=== PATIENT | male | born 1940 | race Caucasian/White ===

== ENCOUNTER 2022-11-29 08:00 | Outpatient (CLI) | payer OTHER ==
--- NOTE | 2022-11-29 19:26 | XRAY Report ---
PROCEDURE: Hand 3 View LT INDICATIONS: LEFT HAND LACERATION TECHNIQUE: 3 views of the hand(s) acquired. COMPARISON: None. FINDINGS: Bones: No fractures or dislocations. No suspicious bony lesions. Age-appropriate degenerative changes are seen. Soft tissues: Soft tissue gas and irregularity can be seen involving the base of the third finger, w hich is consistent with the given history. No radiopaque foreign bodies are seen. IMPRESSION: Third finger laceration, without a radiopaque foreign body. No bony involvement can be seen. Reviewed by: Enrrique Gambino MD on 11/29/2022 6:25 PM [facility] Approved by: Enrrique Gambino MD on 11/29/2022 6:25 PM [facility] Station ID: [id number]
== END 2022-11-29 23:59 | disposition home or self-care (01) ==
LOC: DI.S 08:00
PROVIDERS: ATTEND Emergency Medicine
DX: S61.213A Laceration without foreign body of left middle finger without damage to nail, initial encounter (principal)

== ENCOUNTER 2023-06-29 19:32 | Emergency (ER) | payer OTHER ==
[2023-06-29] MEDS ORDERED: SODIUM CHLORIDE 0.9% 1,000 ML IV STA ×2 (19:51→20:51)
[2023-06-29 20:23] LABS: BASOPHILS % (AUTO) 0.2 %; EOSINOPHILS # (AUTO) 0.2 10^3/uL (0.0-0.7); HCT - HEMATOCRIT 40.4 % (42.0-52.0); HGB - HEMOGLOBIN 13.5 g/dL (14.0-18.0); LYMPHOCYTES # (AUTO) 1.1 10^3/uL (1.5-3.5); MEAN CORPUSCULAR HEMOGLOBIN 31.6 pg (27.0-31.0); MEAN CORPUSCULAR HGB CONC 33.4 g/dL (32.0-36.0); MEAN CORPUSCULAR VOLUME 94.6 fL (80.0-94.0); MEAN PLATELET VOLUME 10.2 fL (7.4-11.4); MONOCYTES # (AUTO) 0.9 10^3/uL (0.0-1.0); MONOCYTES % (AUTO) 11.3 %; NEUTROPHILS # (AUTO) 6.1 10^3/uL (1.5-6.6); NEUTROPHILS % (AUTO) 73.3 %; PLT - PLATELET COUNT 163 10^3/uL (130-450); RED BLOOD COUNT 4.27 10^6/uL (4.70-6.10); RED CELL DISTRIBUTION WIDTH 12.9 % (12.0-15.0); WHITE BLOOD COUNT 8.3 x10^3/uL (4.8-10.8)
--- NOTE | 2023-06-29 20:27 | XRAY Report ---
PROCEDURE: Chest 1 View X-Ray INDICATIONS: Chest Pain TECHNIQUE: One view of the chest was acquired. COMPARISON: None. FINDINGS: Surgical changes and devices: None. Lungs and pleura: No pleural effusions or pneumothorax. Mild infiltrate in the right upper lung zone .. Mediastinum: Mediastinal contours appear normal. Heart size is normal. Bones and chest wall: No suspicious bony lesions. Overlying soft tissues appear unremarkable. IMPRESSION: 1. Mild infiltrate in the right upper lung zone. Reviewed by: Jaquelin Beasley MD on 06/29/2023 8:26 PM PDT Approved by: Jaquelin Beasley MD on 06/29/2023 8:26 PM PDT Station ID: [id number]
[2023-06-29 20:45] LABS: ALBUMIN 4.3 g/dL (3.2-5.5); ALBUMIN/GLOBULIN RATIO 1.6 (1.0-2.2); BILIRUBIN,TOTAL 0.4 mg/dL (0.2-1.0); CALCIUM 9.8 mg/dL (8.5-10.3); CREATININE 1.1 mg/dL (0.6-1.3); PHOSPHORUS 4.5 mg/dL (2.5-5.0); POTASSIUM 4.1 mmol/L (3.5-4.5)
--- NOTE | 2023-06-29 20:56 | ED Physician Documentation ---
History of Present Illness - Stated complaint Stated Complaint: GEN WEAKNESS/DIZZY - Chief complaint Chief Complaint: General - History obtained from History obtained from: Patient, Family - Additonal information Additional information: The patient comes to the emergency department chief complaint of an episode of weakness and shortness of breath earlier today. He states he had been feeling fine, and had been working out in the yard, when he began to feel short of breath. He states he felt lightheaded too, as though he might faint, and so he went into the house and laid down. The patient states that despite laying down, the symptoms did not seem to entirely resolve and he became concerned and decided to come here. The patient states he thinks he may be dehydrated, because he had not had any water to drink all day and after being started on IV fluids here, his symptoms completely resolved. His states that the patient's blood pressure was 78 systolic at home. The patient denies any chest pain. No nausea or vomiting. No abdominal pain. No fevers or chills. No urinary symptoms. He states that he is on enalapril for hypertension and his blood pressure has been well controlled with this. He has had no recent dose changes on his enalapril. He is prediabetic, and has previously had a hemoglobin A1c of 7.5, but states that his doctor told him his last hemoglobin A1c was "good". He has never been put on any diabetic medications. 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 He denies any other medical problems and is not on any other medications besides his enalapril, except for an albuterol inhaler. PD PAST MEDICAL HISTORY - Present Medications Home Medications: Ambulatory Orders Medication Instructions Recorded Confirmed Atorvastatin Calcium 40 mg PO HS 06/30/23 06/30/23 Calcium Carbonate/Vitamin D3 1 each PO BID 06/30/23 06/30/23 [Calcium 500Mg-Vit D3 15Mcg Tab] Enalapril/Hydrochlorothiazide 0.5 tab PO DAILY 06/30/23 06/30/23 [Enalapril-Hctz 10-25 mg Tablet] Multivitamin 06/30/23 [place]-3/Dha/Epa/Dpa/Fish Oil 1 each PO 06/30/23 [[place] Monopure 1300 EC Softgel] Omeprazole 40 mg PO 06/30/23 Tamsulosin HCl [Flomax] 0.4 mg PO 06/30/23 Travoprost [Travatan Z] 2 drops HS 06/30/23 06/30/23 Umeclidinium Brm/Vilanterol Tr 06/30/23 [Anoro Ellipta 62.5-25 Mcg INH] modafiniL [Provigil] 400 mg PO BID 06/30/23 06/30/23 - Allergies Allergies/Adverse Reactions: Allergies Allergy/AdvReac Type Severity Reaction Status Date / Time No Known Drug Allergies Allergy Verified 06/29/23 19:43 PD ED PE NORMAL - Vitals Vital signs reviewed: Yes - General General: Alert and oriented X 3, No acute distress, Well developed/nourished - HEENT HEENT: Atraumatic, PERRL, EOMI, Moist mucous membranes - Neck Neck: Supple, no meningeal sign - Cardiac Cardiac: RRR, No murmur, Strong equal pulses - Respiratory Respiratory: No respiratory distress, Clear bilaterally - Abdomen Abdomen: Soft, Non tender, Non distended - Derm Derm: Normal color, Warm and dry, No rash - Extremities Extremities: No deformity, No edema, No calf tenderness / cord - Neuro Neuro: Alert and oriented X 3, stock holder 2-12 intact, Normal speech, Other (Grossly intact) - Psych Psych: Normal mood, Normal affect Results - Vitals Vitals: Vital Signs - 24 hr 06/29/23 06/29/23 06/29/23 19:43 20:19 21:00 Temperature 36.8 C Heart Rate 74 67 68 Respiratory 16 18 18 Rate Blood Pressure 90/50 L 82/53 L 97/55 L O2 Saturation 99 98 98 06/29/23 06/29/23 06/29/23 21:30 22:30 23:00 Temperature Heart Rate 63 65 64 Respiratory 18 16 18 Rate Blood Pressure 100/62 105/64 108/77 O2 Saturation 98 95 100 06/30/23 06/30/23 06/30/23 00:00 01:00 02:03 Temperature Heart Rate 63 64 65 Respiratory 18 18 18 Rate Blood Pressure 106/71 99/73 116/65 O2 Saturation 98 100 98 06/30/23 06/30/23 06/30/23 03:00 04:00 05:00 Temperature Heart Rate 65 65 61 Respiratory 16 16 12 Rate Blood Pressure 120/51 L 117/80 104/69 O2 Saturation 98 98 97 06/30/23 06:00 Temperature Heart Rate 57 L Respiratory 16 Rate Blood Pressure 100/65 O2 Saturation 98 Oxygen O2 Source Room air - EKG (time done) 2007 EKG releavant findings:: EKG personally interpreted by author of this note. Relevant findings are: Rate: Rate (enter#) (47) Rhythm: Sinus bradycardia, Other (PACs) [place]: Normal Intervals: Normal GA QRS: Normal (With abnormal R wave progression, early transition) Ischemia: Normal ST segments Compare to prior EKG: Old EKG unavailable Computer interpretation: Agree with computer - Labs Labs: Laboratory Tests 06/29/23 06/29/23 06/29/23 20:14 20:14 22:13 WBC 8.3 RBC 4.27 L Hgb 13.5 L Hct 40.4 L MCV 94.6 H MCH 31.6 H MCHC 33.4 RDW 12.9 Plt Count 163 MPV 10.2 Neut # (Auto) 6.1 Lymph # (Auto) 1.1 L Stephenson # (Auto) 0.9 Eos # (Auto) 0.2 Baso # (Auto) 0.0 Absolute Nucleated RBC 0.00 Nucleated RBC % 0.0 Sodium 137 Potassium 4.1 Chloride 100 L Carbon Dioxide 29 Anion Gap 8.0 BUN 31 H Creatinine 1.1 Estimated GFR (MDRD) 64 L Glucose 121 H Calcium 9.8 Phosphorus 4.5 Magnesium 2.0 Total Bilirubin 0.4 AST 26 ALT 17 Alkaline Phosphatase 76 Troponin I High Sens 1199.0 H* 2856.1 H* Total Protein 7.0 Albumin 4.3 Globulin 2.7 Albumin/Globulin Ratio 1.6 Lipase 459 H Nasal Influenza B PCR Nasal Influenza A PCR Nasal RSV (PCR) Nasal SARS-CoV-2 (PCR) 06/29/23 22:45 WBC RBC Hgb Hct MCV MCH MCHC RDW Plt Count MPV Neut # (Auto) Lymph # (Auto) Stephenson # (Auto) Eos # (Auto) Baso # (Auto) Absolute Nucleated RBC Nucleated RBC % Sodium Potassium Chloride Carbon Dioxide Anion Gap BUN Creatinine Estimated GFR (MDRD) Glucose Calcium Phosphorus Magnesium Total Bilirubin AST ALT Alkaline Phosphatase Troponin I High Sens Total Protein Albumin Globulin Albumin/Globulin Ratio Lipase Nasal Influenza B PCR NOT DETECTED Nasal Influenza A PCR NOT DETECTED Nasal RSV (PCR) NOT DETECTED Nasal SARS-CoV-2 (PCR) NOT DETECTED - Rads (name of study) CT angiogram chest Relevant Findings:: Final report received, See rad report (No acute findings) PD Medical Decision Making - ED course Complexity details: reviewed old records, reviewed results, re-evaluated patient, considered differential, d/w patient, d/w family ED course: The patient was worked up with labs, as well as EKG. The patient was asymptomatic at the time of my evaluation, but was still registering a systolic blood pressure of 95. He stated that his normal systolic was around 110. He had received 1 L fluid at this time and I ordered a second. The patient's labs demonstrated a lipase of over 400 with normal LFTs. We had no prior for comparison. The patient was asymptomatic with regard to this, but I felt he should at least have an ultrasound to evaluate his pancreas in the setting of his silent lipase elevation. Ultrasound showed suboptimal views of the pancreas, due to bowel air, The liver showed no acute findings. No gallstones were noted, though gallbladder wall was found to be borderline thickened though the significance is uncertain. The patient was asymptomatic with regard to his upper abdomen. His troponin did come back at nearly 1200. He was started on Lovenox, aspirin, and Plavix. I did not start metoprolol because of his hypotension. His 2-hour troponin came back at 2800. I discussed the findings with the patient and his , and that the patient would need to be transferred to facility with cardiology. The patient was agreeable this and stated that he had previously seen cardiology at both [facility] and [facility] for preventative care, as he is a physician himself. However, he had not seen the clinical rn at [facility] in a number of years, and his last visit with his [facility] clinical rn was a year and a half ago. We did contact both of these hospitals but they were full and not able to accept any patients. We called both [facility] and [facility] and [facility] stated they did not currently have any beds but might later. [facility] stated they had beds but they are now requiring CTAs on any potential non-ST elevation [place] transfer. I did not really feel that this patient was likely to have a large PE that would need interventional, as his vital signs were now completely normal and his symptoms had resolved. However, the patient needed transfer, and since [facility] was the only reasonable regional option at this time, we did go ahead and do the CT angiogram. This was done at 0130 and finally read at 0410. We did at this point call [facility] to speak with their hospitalist, and they did confirm that they have a bed available, but they stated that since their hospitalist shift change was in just about 3 hours, they did not want to have the hospitalist accept the patient right now and instead, we would have to wait until their shift change at 7:00 this morning. Unfortunately, [facility] has not contacted us back with bed availability and so we will have to continue to have this patient wait for acceptance for transfer. The patient has been without further complaints overnight, though his systolic blood pressures have been hovering right around 100 since receiving the 2 L of normal saline. The patient will be signed out to Dr. Coleman at change of shift, pending conversation with hospitalist at [facility] and hopefully transfer. Departure - Departure Disposition: 02 Transfer Acute Care Hosp Clinical Impression: Non-ST elevation [place] (NSTEMI) Condition: Serious Forms: PCP List
[2023-06-29] MEDS ORDERED: METOPROLOL 5 MG/5 ML VIAL IVP STA (22:02)
[2023-06-29] MEDS ORDERED: CLOPIDOGREL 300 MG TABLET PO STA (22:02)
[2023-06-29] MEDS ORDERED: ASPIRIN 325 MG TABLET PO STA (22:02)
[2023-06-29] MEDS ORDERED: ENOXAPARIN 60 MG/0.6 ML SYRINGE SUBQ STA (22:03)
--- NOTE | 2023-06-29 22:56 | Ultrasound Report ---
PROCEDURE: Abdomen Limited INDICATIONS: elevated lipase, feeling unwell TECHNIQUE: Real-time focused scanning was performed of the abdomen, with image documentation. COMPARISONS: None. FINDINGS: Liver: Liver is normal in size and homogeneous in echotexture. Portal vein is patent and demonstrat es hepatopedal flow. Gallbladder: No gallstones. Mild gallbladder wall thickening measuring up to 3.2 mm. No gallstones, p ericholecystic fluid collection or sonographic Atkinson sign. Biliary ducts: Intrahepatic bile ducts are non-dilated. Extrahepatic bile duct caliber measures 6.1 mm. Normal is 6-7 mm or less in diameter, or 10 mm or less post-cholecystectomy. Pancreas: Obscured by overlying bowel gas. Right kidney: Normal in size and echotexture. Right kidney measures 10.6 cm long. No hydronephrosis or nephrolithiasis. No solid masses. No complex renal cystic lesions which require follow-up. Miscellaneous: No free abdominal fluid. IMPRESSION: 1. Borderline gallbladder wall thickening. No gallstones. If there is clinical suspicion for acute ch olecystitis, consider HIDA scan for further evaluation. 2. Normal ultrasound appearance of liver. 3. Pancreas obscured by overlying bowel gas. 4. No free fluid. Reviewed by: Jaquelin Beasley MD on 06/29/2023 10:54 PM PDT Approved by: Jaquelin Beasley MD on 06/29/2023 10:54 PM PDT Station ID: [id number]
[2023-06-29 23:51] LABS: INFLUENZA A- RESP PCR PANEL NOT DETECTED; INFLUENZA B - RESP PCR PANEL NOT DETECTED; RSV- RESP PCR PANEL NOT DETECTED; SARS-CoV-2 -RESP PCR PANEL NOT DETECTED
--- NOTE | 2023-06-30 00:52 | XRAY Report ---
PROCEDURE: Chest 1 View X-Ray INDICATIONS: CP/SOB TECHNIQUE: One view of the chest was acquired. COMPARISON: None. FINDINGS: Surgical changes and devices: None. Lungs and pleura: Mild right upper lobe infiltrates suspicious for pneumonia. No pleural effusions o r pneumothorax. Mediastinum: Mediastinal contours appear normal. Heart size is normal. Bones and chest wall: No suspicious bony lesions. Overlying soft tissues appear unremarkable. IMPRESSION: Mild right upper lobe infiltrate suspicious for pneumonia. Reviewed by: Jaquelin Beasley MD on 06/30/2023 12:51 AM PDT Approved by: Jaquelin Beasley MD on 06/30/2023 12:51 AM PDT Station ID: [id number]
[2023-06-30] MEDS ORDERED: iohexoL-300 100 ML VIAL IVP ONE (02:09)
--- NOTE | 2023-06-30 08:01 | ED Physician Documentation ---
ED Addendum - Addendum Addendum: 06/30/23 08:00 83-year-old Samuel Wheeler is left in my care at shift change anticipating a bed becoming available for cardiology at [facility]. The patient has been here for more than 12 hours and a third troponin is done with a value in over 10,000. At this point (07:50) a second electrocardiogram was obtained which shows minimal changes rate of 56 with slightly higher voltage and an earlier transition. 06/30/23 08:06 06/30/23 08:21 I evaluated the patient at the bedside this morning anticipating a call from the hospitalist at [facility]. I find the patient is generally asymptomatic feels well. He has been administered 2 L of saline and I interrogated his inferior vena cava with POCUS and found a vessel of 2.4 cm. This is consistent with developing failure. The repeat electrocardiogram was not significantly changed. The patient presented hypotensive and currently has blood pressures over 100. I have talked to the hospitalist Dr. Herrera at [facility] and he will accept the patient in transfer. Assessment: NSTEMI plan: Transfer to [facility] with Dr. Herrera accepting 06/30/23 19:30
[2023-06-30 08:13] VITALS: BP 99/66
--- NOTE | 2023-06-30 08:45 | CT Report ---
PROCEDURE: ANGIO CHEST W/WO INDICATIONS: dyspnea CONTRAST: Omni 300 100ml TECHNIQUE: After the administration of intravenous contrast, 2 mm axial images were acquired from the pulmonary apices to the posterior costophrenic angles during the arterial phase. In addition, 1 mm lung kernel and 5 mm soft tissue kernel reconstructions were performed. 3-dimensional coronal oblique maximum int ensity projection (MIP) reformats, 8 mm axial MIP, and 5 mm coronal and sagittal MPR reformats were t hen performed through the thorax. For radiation dose reduction, the following was used: automated exp osure control, adjustment of mA and/or kV according to patient size. COMPARISON: None. FINDINGS: Image quality: Excellent. Large vessels: No filling defects within the opacified pulmonary arteries, accounting for motion and contrast timing. No evidence of acute aortic syndrome or aortic aneurysm. Lungs and pleura: Emphysematous are seen in bilateral lung martell. Scattered scarring/atelectasis in periphery of bilateral lung martell are seen. No pleural effusion or pneumothorax. Airway is patent. M ild bronchiectasis are seen in bilateral lower lobes and right upper lobe. Mediastinum: Heart size is normal. No pericardial effusion. Mild ascending thoracic aortic aneurysm m easures up to 4.2 cm in largest AP diameter.. No mediastinal adenopathy by size criteria. Moderate a therosclerotic calcifications are noted throughout coronary vessels and thoracic aorta. Small hiatal hernia. Chest wall and lower neck: Thyroid is unremarkable. No axillary or supraclavicular adenopathy by size . Bones: No aggressive osseous abnormality. 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 No acute vertebral body compression fracture. Upper Abdomen: Unremarkable. IMPRESSION: 1. No evidence of pulmonary emboli. 2. Chronic scarring/atelectasis in periphery of bilateral lung martell. Mild COPD. Mild bronchiectasis . 3. No pleural effusions or pneumothorax. 4. Mild ascending thoracic aortic aneurysm. Mild to moderate atherosclerotic calcifications. No significant discrepancies from preliminary readings. Reviewed by: Deion Jackson MD on 06/30/2023 8:43 AM PDT Approved by: Deion Jackson MD on 06/30/2023 8:43 AM PDT Station ID: [id number]
[2023-06-30 08:51] VITALS: O2SAT 98
== END 2023-06-30 10:22 | disposition short-term general hospital (02) ==
LOC: ED 19:32
DX: I21.4 Non-ST elevation (NSTEMI) myocardial infarction (principal)
CPT/HCPCS: 36415; 71045; 71275; 76705; 80053; 83690; 83735; 84100; 84484; 85025; 87637; 93005; 96372; 99285; A9270; J1650; Q9967

== ENCOUNTER 2023-06-30 10:02 | Outpatient (CLI) | payer OTHER | END 2023-06-30 10:03 | disposition short-term general hospital (02) | LOC: EMS 10:02 | PROVIDERS: ATTEND Emergency Medicine | DX: I21.4 Non-ST elevation (NSTEMI) myocardial infarction (principal) | CPT/HCPCS: A0425; A0428 ==